=== PATIENT | female | born 1955 | race Asian ===

== ENCOUNTER 2025-05-28 19:53 | Inpatient (IN) | payer MEDICARE, OTHER ==
[~2025-05-28] VITALS: Ht 157.5 cm; Wt 75.0 kg
[2025-05-28] MEDS ORDERED: RISP1TAB97 PO (20:07)
[2025-05-28] MEDS ORDERED: MAG-5 PO (20:07)
[2025-05-28] MEDS ORDERED: ACET325T53 PO (20:07)
[2025-05-28] MEDS ORDERED: OLAN5TAB70 PO (20:07)
[2025-05-28] MEDS ORDERED: MELA10TA2 PO (20:07)
[2025-05-28] MEDS ORDERED: GABA300T25 PO (20:07)
[2025-05-28] MEDS ORDERED: DIVA500T2 PO (20:07)
[2025-05-28] MEDS ORDERED: FLUC100T8 PO (20:07)
[2025-05-28 20:45] LABS: PLATELET COUNT (AUTO) 150 K/uL (179-408); RED BLOOD CELL COUNT(AUTO) 3.25 MIL/uL (3.63-4.92); RED CELL DISTRIBUTION WIDTH 15.2 % (12.3-17.7); WHITE BLOOD COUNT (AUTO) 5.4 K/uL (3.8-11.8)
[2025-05-28 20:54] LABS: CREATININE 0.8 mg/dL (0.6-1.3); SODIUM SERUM 138 mmol/L (136-145); UREA NITROGEN, BLOOD 29 mg/dL (7-18)
[2025-05-28 20:59] LABS: ASPARTATE AMINOTRANSFERASE 14 U/L (15-37); TOTAL PROTEIN, SERUM 7.2 g/dL (6.4-8.2)
[2025-05-28] MEDS: IV NORMAL SALINE 1000 ML BAG IV ONE (21:57)
[2025-05-28 22:03] LABS: *BILIRUBIN,URIN NEGATIVE (NEGATIVE); *BLOOD, URINE NEGATIVE (NEGATIVE); *CLARITY,URINE CLEAR (CLEAR); *KETONES,URINE NEGATIVE (NEGATIVE); *PROTEIN,URINE NEGATIVE (NEGATIVE); *UROBILINOGEN,URINE 0.2 E.U./dl (NORMAL); LEUKOCYTE ESTERASE ,URINE TRACE (NEGATIVE); NITRITE, URINE NEGATIVE (NEGATIVE); UGLUCOSE NEGATIVE (NEGATIVE)
[2025-05-28 22:04] LABS: *COLOR,URINE LIGHT YELLOW (YELLOW)
[2025-05-28 22:51] LABS: SQUAMOUS EPITHELIAL CELL,UR FEW /HPF (NONE SEEN)
[2025-05-29 07:53] VITALS: BP 128/81; TEMP 97.6; O2SAT 99
[2025-05-29] MEDS ORDERED: ONDANSETRON 4 MG/2 ML VIAL IV PRN (09:30)
[2025-05-29] MEDS ORDERED: REMEDY ESSENTIAL ZINC PASTE 113 GM TP PRN (09:30)
[2025-05-29] MEDS: ENOXAPARIN SODIUM 40 MG/0.4 ML DISP.SYRIN SQ SCH (09:40)
[2025-05-29] MEDS: ACETAMINOPHEN 325 MG TABLET PO PRN (11:49)
[2025-05-29 12:00] VITALS: BP 146/98; TEMP 98; O2SAT 97
[2025-05-29] MEDS: PREGABALIN 50 MG CAPSULE PO SCH (13:53)
[2025-05-29] MEDS: HYDROCODONE/APAP 5-325MG TABLET PO PRN (13:55)
[2025-05-29] MEDS: DIVALPROEX 500 MG TABLET.DR PO SCH (16:12)
[2025-05-29] MEDS ORDERED: CLONIDINE HCL 0.1 MG TABLET PO PRN (16:30)
[2025-05-29 16:45] VITALS: BP 173/98; TEMP 98.4; O2SAT 97
[2025-05-29 18:06] VITALS: BP 136/81; TEMP 98; O2SAT 97
[2025-05-29 19:27] VITALS: BP 130/97; TEMP 98.6; O2SAT 94
[2025-05-29] MEDS: OLANZAPINE 5 MG TABLET PO SCH (21:09)
[2025-05-29] MEDS: MELATONIN 3 MG TABLET PO SCH (21:09)
[2025-05-30 06:18] VITALS: BP 139/70; TEMP 97.9; O2SAT 96
[2025-05-30 06:25] LABS: PLATELET COUNT (AUTO) 168 K/uL (179-408); RED BLOOD CELL COUNT(AUTO) 3.42 MIL/uL (3.63-4.92); RED CELL DISTRIBUTION WIDTH 14.8 % (12.3-17.7); WHITE BLOOD COUNT (AUTO) 3.5 K/uL (3.8-11.8)
[2025-05-30] MEDS: PANTOPRAZOLE SODIUM 40 MG TABLET.DR PO SCH (06:29)
[2025-05-30 06:37] LABS: CREATININE 0.8 mg/dL (0.6-1.3); SODIUM SERUM 143.0 mmol/L (136-145); UREA NITROGEN, BLOOD 19.0 mg/dL (7-18)
[2025-05-30] MEDS ORDERED: PREG50CA PO (08:53)
[2025-05-30] MEDS ORDERED: DOXY100C5 PO (08:56)
[2025-05-30] MEDS: CEFTRIAXONE 500 MG in IV DEXTROSE 5% 50 ML IV ONE (09:43)
[2025-05-30 10:59] VITALS: BP 138/77; TEMP 97.6; O2SAT 94
[2025-05-30 15:00] VITALS: BP 126/74; TEMP 98.7; O2SAT 100
== END 2025-05-30 16:15 | DRG 552 ==
LOC: ER 19:59 → MEDSURG3 22:00
PROVIDERS: ADMIT Nurse Practitioner Family; ATTEND Nurse Practitioner Family
DX: M51.16 Intervertebral disc disorders with radiculopathy, lumbar region (principal); M51.17 Intervertebral disc disorders with radiculopathy, lumbosacral region; D64.9 Anemia, unspecified; E66.9 Obesity, unspecified; Z68.33 Body mass index [BMI] 33.0-33.9, adult; R79.89 Other specified abnormal findings of blood chemistry; F41.9 Anxiety disorder, unspecified; F15.11 Other stimulant abuse, in remission; N18.9 Chronic kidney disease, unspecified; E86.0 Dehydration; R60.0 Localized edema; F32.A Depression, unspecified; Z88.0 Allergy status to penicillin; Z96.641 Presence of right artificial hip joint; Z79.899 Other long term (current) drug therapy
CPT/HCPCS: 36415; 71045; 72131; 83735; 84100; 84484; 85025; 85730; 87086; A4663; C1758; G0378; J0696; J1650; J7040

== ENCOUNTER 2025-06-24 23:41 | Inpatient (IN) | payer MEDICARE, OTHER ==
[~2025-06-24] VITALS: Ht 160 cm; Wt 68.0 kg
[~2025-06-24 23:41] MED LIST: ACET325T53 PO; DIVA500T2 PO; DOXY100C5 PO; FLUC100T8 PO; GABA300T25 PO; MAG-5 PO; MELA10TA2 PO; OLAN5TAB70 PO; PREG50CA PO; RISP1TAB97 PO
[2025-06-25 01:02] LABS: PLATELET COUNT (AUTO) 183 K/uL (179-408); RED BLOOD CELL COUNT(AUTO) 3.50 MIL/uL (3.63-4.92); RED CELL DISTRIBUTION WIDTH 14.0 % (12.3-17.7); WHITE BLOOD COUNT (AUTO) 4.7 K/uL (3.8-11.8)
[2025-06-25 01:08] LABS: CREATININE 0.6 mg/dL (0.6-1.3); SODIUM SERUM 140.0 mmol/L (136-145); UREA NITROGEN, BLOOD 30.0 mg/dL (7-18)
[2025-06-25 01:13] LABS: ASPARTATE AMINOTRANSFERASE 7.0 U/L (15-37); TOTAL PROTEIN, SERUM 6.6 g/dL (6.4-8.2)
[2025-06-25 01:20] LABS: *BILIRUBIN,URIN NEGATIVE (NEGATIVE); *CLARITY,URINE CLEAR (CLEAR); *COLOR,URINE YELLOW (YELLOW); *KETONES,URINE NEGATIVE (NEGATIVE); *PROTEIN,URINE 1+ (NEGATIVE); *UROBILINOGEN,URINE 0.2 E.U./dl (NORMAL); LEUKOCYTE ESTERASE ,URINE 1+ (NEGATIVE); NITRITE, URINE POSITIVE (NEGATIVE); UGLUCOSE NEGATIVE (NEGATIVE)
[2025-06-25 01:22] LABS: ETHANOL < 3 MG/DL (0-10)
[2025-06-25 01:23] LABS: *BLOOD, URINE TRACE (NEGATIVE)
[2025-06-25 01:28] LABS: *AMPHETAMINE, URINE NEGATIVE (NEGATIVE); *BARBITURATE, URINE NEGATIVE (NEGATIVE); *BENZODIAZEPINE, URINE NEGATIVE (NEGATIVE); *CANNABINOID, URINE NEGATIVE (NEGATIVE); *COCCAINE, URINE NEGATIVE (NEGATIVE); *OPIATE, URINE NEGATIVE (NEGATIVE); *PHENCYCLIDINE SCREEN,URINE NEGATIVE (NEGATIVE); FENTANYL, URINE NEGATIVE (NEGATIVE)
[2025-06-25 02:10] LABS: SQUAMOUS EPITHELIAL CELL,UR FEW /HPF (NONE SEEN)
[2025-06-25] MEDS ORDERED: CEFTRIAXONE /D5W 50ML IVPB **ER PYXIS IV ONE (03:00)
[2025-06-25] MEDS: CEFTRIAXONE 1 G in IV DEXTROSE 5% 50 ML IV ONE (03:04)
[2025-06-25] MEDS ORDERED: MAGN400O6 PO (03:18)
[2025-06-25] MEDS ORDERED: TRAM100T23 PO (03:18)
[2025-06-25] MEDS ORDERED: DOXY100C5 PO (03:18)
[2025-06-25] MEDS ORDERED: IBUP-1953 PO (03:18)
[2025-06-25] MEDS ORDERED: PREG50CA PO (03:18)
[2025-06-25] MEDS ORDERED: MAG-5 PO (03:18)
[2025-06-25] MEDS ORDERED: OLAN5TAB70 PO (03:18)
[2025-06-25] MEDS ORDERED: ACET325T53 PO (03:18)
[2025-06-25] MEDS ORDERED: DIVA500T4 PO (03:18)
[2025-06-25] MEDS ORDERED: GABA300C PO (03:18)
[2025-06-25] MEDS ORDERED: LORA-259 PO (03:18)
[2025-06-25] MEDS ORDERED: RISP0.5T65 PO (03:18)
[2025-06-25] MEDS ORDERED: ACETAMINOPHEN 650 MG SUPP.RECT RC PRN (03:30)
[2025-06-25] MEDS ORDERED: REMEDY ESSENTIAL ZINC PASTE 113 GM TP PRN (03:30)
[2025-06-25] MEDS ORDERED: ONDANSETRON 4 MG/2 ML VIAL IV PRN (03:30)
[2025-06-25] MEDS ORDERED: HYDROCODONE/APAP 10-325 MG TABLET PO ONE (04:00)
[2025-06-25] MEDS: IV NORMAL SALINE 1000 ML BAG IV ONE (04:00)
[2025-06-25] MEDS ORDERED: OLANZAPINE 5 MG TABLET PO ONE (06:15)
[2025-06-25 07:00] VITALS: BP 103/74
[2025-06-25 09:00] VITALS: BP 143/89; TEMP 98.1; O2SAT 98
[2025-06-25] MEDS: PANTOPRAZOLE SODIUM 40 MG VIAL IV SCH (11:09)
[2025-06-25] MEDS: NICOTINE 14 MG/24HR PATCH TD SCH (11:09)
[2025-06-25 11:39] VITALS: BP 139/89; TEMP 97.9; O2SAT 97
[2025-06-25] MEDS: FLUCONAZOLE 100 MG TABLET PO SCH (11:53)
[2025-06-25] MEDS ORDERED: TRAM50TA2 PO (12:23)
[2025-06-25] MEDS ORDERED: Medication Not On Formulary EA (Gabapentin (Gralise) 1 TAB) PO SCH (13:00)
[2025-06-25] MEDS: DIVALPROEX 500 MG TABLET.DR PO SCH (13:39)
[2025-06-25] MEDS: GABAPENTIN 300 MG CAPSULE PO SCH (13:39)
[2025-06-25] MEDS: MORPHINE SULFATE 2 MG/1 ML DISP.SYRIN IVP PRN (14:24)
[2025-06-25 15:40] VITALS: BP 135/87; TEMP 98.6; O2SAT 96
[2025-06-25] MEDS: IV NS 1000 ML 1,000 ML IV SCH (18:02)
[2025-06-25 19:45] VITALS: BP 119/79; TEMP 98.4; O2SAT 95
[2025-06-25] MEDS: OLANZAPINE 5 MG TABLET PO SCH (20:31)
[2025-06-26] MEDS: MAGNESIUM HYDROXIDE 30 ML LIQUID UDC PO PRN (03:01)
[2025-06-26] MEDS: ENOXAPARIN SODIUM 40 MG/0.4 ML DISP.SYRIN SQ SCH (03:04)
[2025-06-26] MEDS: HYDROCODONE/APAP 5-325MG TABLET PO PRN (05:47)
[2025-06-26 06:44] VITALS: BP 131/89; TEMP 97.9; O2SAT 96
[2025-06-26 07:16] LABS: PLATELET COUNT (AUTO) 186 K/uL (179-408); RED BLOOD CELL COUNT(AUTO) 3.48 MIL/uL (3.63-4.92); RED CELL DISTRIBUTION WIDTH 14.0 % (12.3-17.7); WHITE BLOOD COUNT (AUTO) 4.9 K/uL (3.8-11.8)
[2025-06-26 07:45] LABS: CREATININE 0.7 mg/dL (0.6-1.3); SODIUM SERUM 140.0 mmol/L (136-145); UREA NITROGEN, BLOOD 17.0 mg/dL (7-18)
[2025-06-26 11:35] VITALS: BP 141/94; TEMP 98.8; O2SAT 99
[2025-06-26 16:00] VITALS: BP 106/73; TEMP 98.4; O2SAT 96
[2025-06-26] MEDS: LACTULOSE 20 G/30 ML LIQUID UDC PO ONE (18:30)
[2025-06-26 19:57] VITALS: BP 101/74; TEMP 98; O2SAT 93
[2025-06-27 05:48] VITALS: BP 117/68; TEMP 99; O2SAT 94
[2025-06-27] MEDS: PANTOPRAZOLE SODIUM 40 MG TABLET.DR PO SCH (06:37)
[2025-06-27 12:00] VITALS: BP 151/89; TEMP 97.8; O2SAT 97
[2025-06-27] MEDS ORDERED: NITR-84 PO (13:17)
[2025-06-27] MEDS ORDERED: NITR100C11 PO (14:05)
[2025-06-27] MEDS: NITROFURANTOIN/NITROFURAN MAC 100 MG CAPSULE PO SCH (14:14)
[2025-06-27 16:00] VITALS: BP 142/86; TEMP 98.5; O2SAT 94
== END 2025-06-27 17:00 | DRG 91 ==
LOC: ER 23:43 → TELE3 06-25 08:24 → MEDSURG3 06-25 09:18
PROVIDERS: ADMIT Registered Nurse Psychiatric/Mental Health; ATTEND Internal Medicine
DX: G92.8 Other toxic encephalopathy (principal); G93.41 Metabolic encephalopathy; R53.2 Functional quadriplegia; N39.0 Urinary tract infection, site not specified; T50.915A Adverse effect of multiple unspecified drugs, medicaments and biological substances, initial encounter; Y92.099 Unspecified place in other non-institutional residence as the place of occurrence of the external cause; Z79.899 Other long term (current) drug therapy; G62.9 Polyneuropathy, unspecified; F31.9 Bipolar disorder, unspecified; Z96.641 Presence of right artificial hip joint; Z88.0 Allergy status to penicillin; H57.03 Miosis
CPT/HCPCS: 36415; 70450; 71045; 73090; 83690; 83735; 84100; 85025; 87077; 87086; A4606; C1758; G0378; G0480; J0696; J1650; J1956; J2270; J2470; J7040